=== PATIENT | male | born 1935 | race Caucasian/White ===

== ENCOUNTER 2018-11-09 07:05 | Emergency (ER) | payer MEDICARE ==
[~2018-11-09] VITALS: Ht 175.3 cm; Wt 108.9 kg
[~2018-11-09 07:05] MED LIST: ASCO1ER PO; ASCO500; ASPI325 PO; CARV25 PO; CLIN300 PO; CLOP75 PO; DILT120ERA PO; GLIP10 PO; HYDCHL25 PO; LISHYD2025; LISI20 PO; METF500; METF500 PO; METO50; METO50ER PO; OXYACE5T PO; POTA8 PO; RXOXYACE PO; SIMV40; SIMV40 PO; SPIR25 PO; ZESTORETIC 20-121 EA PO; [UNRECOGNIZED DRUG - REMARK]; [UNRECOGNIZED DRUG - REMARK]
[2018-11-09 07:38] LABS: Source, Urine Clean Catch
[2018-11-09 07:42] LABS: Appearance, Urine Clear (Clear); Bilirubin, Urine Neg (Neg); Blood, Urine 4+ (Neg); Color, Urine Yellow (P-Yellow); Glucose Qualitative, Urine Neg (Neg); Ketones, Urine 2+ (Neg); Leukocyte Esterase, Urine 1+ (Neg); Nitrite, Urine Pos (Neg); Protein, Urine 1+ (Neg); Urobilinogen, Urine NORM (Normal)
[2018-11-09 07:45] LABS: BASOPHILS ABSOLUTE AUTO 0.05 K/mm3 (0.00-0.23); BASOPHILS PERCENT AUTO 0 % (0-2); EOSINOPHILS ABSOLUTE AUTO 0.09 K/mm3 (0.00-0.68); EOSINOPHILS PERCENT AUTO 1 % (0-6); Hematocrit 42.7 % (37.0-53.0); Hemoglobin 13.9 g/dL (13.5-17.5); IMMATURE GRAN ABSOLUTE AUTO 0.05 K/mm3 (0.00-0.10); IMMATURE GRAN PERCENT AUTO 0 % (0-1); LYMPHOCYTES ABSOLUTE AUTO 0.78 K/mm3 (0.84-5.20); LYMPHOCYTES PERCENT AUTO 6 % (21-46); MONOCYTES PERCENT AUTO 10 % (4-13); Mean Corpuscular HGB Conc 32.6 g/dL (31.5-36.5); Mean Corpuscular Volume 95 fL (80-100); Mean Platelet Volume 11.5 fL (9.1-12.4); NEUTROPHILS ABSOLUTE AUTO 10.26 K/mm3 (1.96-9.15); NEUTROPHILS PERCENT AUTO 83 % (41-73); Platelet Count 126 K/mm3 (150-400); RDW Coefficient Variation 13.8 % (11.7-14.2); Red Blood Cell Count 4.48 M/mm3 (4.30-5.90); White Blood Cell Count 12.43 K/mm3 (4.00-11.30)
[2018-11-09 07:56] LABS: Albumin, Blood 3.8 g/dL (3.4-5.0); Albumin/Globulin Ratio 0.9 (0.8-1.8); Bilirubin, Total 2.1 mg/dL (0.1-1.0); Calcium, Blood 8.9 mg/dL (8.5-10.1); Globulin, Blood 4.4 g/dL (2.2-4.0); Potassium, Blood 4.4 mmol/L (3.5-5.5); Total Protein, Blood 8.2 g/dL (6.4-8.2)
[2018-11-09 07:58] LABS: Squamous Epithelial Cells Rare /hpf (Few)
[2018-11-09 07:59] LABS: Bacteria Many /hpf
[2018-11-09] MEDS ORDERED: Flomax0.4 MG PO (08:52)
[2018-11-09] MEDS ORDERED: CEFP200 PO (08:52)
[2018-11-09] MEDS ORDERED: ONDA4ODT MM (08:52)
[2018-11-09] MEDS ORDERED: Percocet 5-3251 EACH PO (08:52)
== END 2018-11-09 10:03 | disposition home or self-care (01) ==
LOC: ER 07:05
PROVIDERS: Physician Assistant
DX: N13.2 Hydronephrosis with renal and ureteral calculous obstruction (principal); Z79.899 Other long term (current) drug therapy; Z79.84 Long term (current) use of oral hypoglycemic drugs; Z79.82 Long term (current) use of aspirin; I10 Essential (primary) hypertension; E11.9 Type 2 diabetes mellitus without complications
CPT/HCPCS: 36415; 74176; 80053; 81001; 83690; 85025; 87077; 87086; 87186; 96361; 96365; 96375; 99284-25; J0696; J2405; J7120